=== PATIENT | female | born 1940 ===

== ENCOUNTER 2018-07-31 23:53 | Inpatient (IN) ==
[2018-08-01] MEDS ORDERED: SODIUM CHLORIDE 0.9% 2,100 ML IV ONE (01:01)
[2018-08-01] MEDS ORDERED: GLUCAGON 1 MG VIAL IM PRN (01:19)
[2018-08-01] MEDS ORDERED: ZALEPLON 5 MG CAPSULE PO PRN (01:19)
[2018-08-01] MEDS ORDERED: diphenhydrAMINE CAP 25 MG CAPSULE PO PRN (01:19)
[2018-08-01] MEDS ORDERED: BISACODYL 5 MG TABLET PO PRN (01:19)
[2018-08-01] MEDS ORDERED: DEXTROSE 50% 25 GM/50 ML SYRINGE IV PRN (01:19)
[2018-08-01] MEDS ORDERED: MORPHINE 4 MG/1 ML VIAL IV PRN (01:19)
[2018-08-01] MEDS ORDERED: PROMETHAZINE 25 MG/1 ML VIAL IM PRN (01:19)
[2018-08-01 02:13] LABS: PT Patient Result 11.2 SECS; Partial Thromboplastin Time 28.8 SECS (0-40)
[2018-08-01 02:18] LABS: Basophils % 0.2 % (0.0-0.8); Hematocrit 37.8 VOL% (35.7-47.0); Hemoglobin 12.8 GM/DL (12.0-16.0); Immature Granulocytes % 1.3 %; Immature Granulocytes Absolute 0.27 #; Lymphocytes # 1.2 10*3/uL (1.4-4.0); Lymphocytes % 5.7 % (21.3-54.2); Mean Corpuscular HGB Conc 33.9 GM/DL (32-36); Mean Corpuscular Hemoglobin 28 PG (27-34); Mean Corpuscular Volume 83.1 FL (87-102); Mean Platelet Volume 10.5 FL (9.6-12.0); Monocytes # 1.1 10*3/uL (0.11-0.8); Monocytes % 5.3 % (1.7-12.7); Neutrophils # 18.1 10*3/uL (1.4-7.4); Neutrophils % 87.5 % (38.7-73.9); Platelet Count 179 T/CUMM (130-400); Red Blood Count 4.55 MC/CUMM (3.8-5.5); Red Cell Distribution Width 12.8 % (9.3-17.3); White Blood Count 20.7 T/CUMM (4-12)
[2018-08-01] MEDS ORDERED: MEROPENEM 1,000 MG VIAL IV ONE (02:44)
[2018-08-01] MEDS ORDERED: SODIUM CHLORIDE 0.9% 100 ML IV ONE (02:44)
[2018-08-01] MEDS: MEROPENEM 1,000 MG in SODIUM CHLORIDE 0.9% 100 ML IV SCH ×3 (02:48→15:11)
[2018-08-01 02:58] LABS: Albumin 3.3 G/DL (3.4-5.0); Bilirubin,Total 1.2 MG/DL (0.2-1.0); Calcium 8.3 MG/DL (8.5-10.1); Osmolality,Calculated 282.4 MOS/KG (273-304); Potassium 3.1 MMOL/L (3.5-5.1); Total Protein 7.4 G/DL (6.4-8.3)
[2018-08-01 03:15] LABS: Apearance,Urine Slightly Hazy (Clear); Bacteria,Urine Occasional /HPF (Few); Bilirubin,Urine Negative (Negative); Blood, Urine Large mg/dL (Negative); Glucose,Urine (UA) >=500 mg/dL (Negative); Ketones,Urine 20 mg/dL (Negative); Mucus,Urine Occasional /LPF (Occasional); Nitrite,Urine Negative (Negative); Protein,Urine 30 MG/DL; RBC,Urine 1 /HPF (0-4); Squamous Epithelial Cell,Urine Occasional /HPF (0-10); Urine Color Yellow (Yellow); Urine Specific Gravity 1.025 (1.001-1.035); Urine Urobilinogen < 2.0 EU/DL (0.2-1.0); WBC,Urine 77 /HPF (0-6)
[2018-08-01 03:44] LABS: Band Neutrophils 4 % (0-10); Lymphocytes 7 % (20-55); Segmented Neutrophils 88 % (50-85)
[2018-08-01 03:45] LABS: Platelet Estimate Adequate; Total Cells Counted 100
[2018-08-01] MEDS: SODIUM CHLORIDE 0.9% 1,000 ML IV SCH ×3 (04:06→17:42)
[2018-08-01] MEDS: ACETAMINOPHEN 325 MG TABLET PO PRN ×2 (04:28→15:11)
[2018-08-01] MEDS: amLODIPine 5 MG TABLET PO SCH (09:02)
[2018-08-01] MEDS: PANTOPRAZOLE 40 MG TABLET PO SCH (09:02)
[2018-08-01] MEDS: INSULIN NPH/REGULAR 70/30 100 UNIT/ML SUBCUT SCH ×2 (09:02→21:12)
[2018-08-01] MEDS: LISINOPRIL 20 MG TABLET PO SCH (09:02)
[2018-08-01] MEDS: ASPIRIN EC 81 MG TABLET PO SCH (09:02)
[2018-08-01] MEDS: DONEPEZIL 10 MG TABLET PO SCH (09:02)
[2018-08-01] MEDS: INSULIN REGULAR 100 UNIT/ML SUBCUT SCH ×4 (09:04→21:12)
[2018-08-01] MEDS: POTASSIUM CHLORIDE 20 MEQ/15 ML UDCUP PER TUBE PRN ×2 (11:00→13:00)
[2018-08-01] MEDS ORDERED: ACETAMINOPHEN 650 MG SUPP RECTAL ONE (15:12)
[2018-08-01] MEDS: ONDANSETRON 4 MG/2 ML VIAL IV PRN (15:32)
[2018-08-01] MEDS: SIMVASTATIN 10 MG TABLET PO SCH (21:11)
[2018-08-02] MEDS: SODIUM CHLORIDE 0.9% 1,000 ML IV SCH ×3 (00:16→22:19)
[2018-08-02] MEDS: MEROPENEM 1,000 MG in SODIUM CHLORIDE 0.9% 100 ML IV SCH ×2 (00:48→13:52)
[2018-08-02] MEDS: ACETAMINOPHEN 325 MG TABLET PO PRN (06:18)
[2018-08-02] MEDS: INSULIN REGULAR 100 UNIT/ML SUBCUT SCH ×4 (08:33→20:57)
[2018-08-02] MEDS: DONEPEZIL 10 MG TABLET PO SCH (08:38)
[2018-08-02] MEDS: amLODIPine 5 MG TABLET PO SCH (08:38)
[2018-08-02] MEDS: ASPIRIN EC 81 MG TABLET PO SCH (08:38)
[2018-08-02] MEDS: INSULIN NPH/REGULAR 70/30 100 UNIT/ML SUBCUT SCH ×2 (08:38→20:49)
[2018-08-02] MEDS: PANTOPRAZOLE 40 MG TABLET PO SCH (08:38)
[2018-08-02] MEDS: LISINOPRIL 20 MG TABLET PO SCH (08:38)
[2018-08-02] MEDS: POTASSIUM CHLORIDE 20 MEQ/15 ML UDCUP PER TUBE PRN ×4 (08:39→21:38)
[2018-08-02] MEDS ORDERED: VANCOMYCIN INJ 1,000 MG in SODIUM CHLORIDE 0.9% 250 ML IV ONE (10:00)
[2018-08-02] MEDS ORDERED: GLIMEPIRIDE 2 MG TABLET PO SCH (10:00)
[2018-08-02] MEDS: VANCOMYCIN INJ 1,000 MG in SODIUM CHLORIDE 0.9% 250 ML IV SCH (10:11)
[2018-08-02] MEDS: GLIMEPIRIDE 2 MG TABLET PO SCH (16:14)
[2018-08-02] MEDS: SIMVASTATIN 10 MG TABLET PO SCH (20:48)
[2018-08-03] MEDS: MEROPENEM 1,000 MG in SODIUM CHLORIDE 0.9% 100 ML IV SCH ×2 (01:27→13:46)
[2018-08-03] MEDS: ONDANSETRON 4 MG/2 ML VIAL IV PRN ×2 (01:31→20:59)
[2018-08-03] MEDS: SODIUM CHLORIDE 0.9% 1,000 ML IV SCH ×2 (08:28→20:18)
[2018-08-03] MEDS: POTASSIUM CHLORIDE 20 MEQ/15 ML UDCUP PER TUBE PRN (08:29)
[2018-08-03] MEDS: INSULIN REGULAR 100 UNIT/ML SUBCUT SCH ×4 (08:29→21:02)
[2018-08-03] MEDS: LISINOPRIL 20 MG TABLET PO SCH (08:29)
[2018-08-03] MEDS: INSULIN NPH/REGULAR 70/30 100 UNIT/ML SUBCUT SCH ×2 (08:29→21:03)
[2018-08-03] MEDS: GLIMEPIRIDE 2 MG TABLET PO SCH ×2 (08:30→15:59)
[2018-08-03] MEDS: DONEPEZIL 10 MG TABLET PO SCH (08:30)
[2018-08-03] MEDS: PANTOPRAZOLE 40 MG TABLET PO SCH (08:30)
[2018-08-03] MEDS: amLODIPine 5 MG TABLET PO SCH ×2 (08:30→20:58)
[2018-08-03] MEDS: ASPIRIN EC 81 MG TABLET PO SCH (08:30)
[2018-08-03] MEDS: VANCOMYCIN INJ 1,000 MG in SODIUM CHLORIDE 0.9% 250 ML IV SCH (09:31)
[2018-08-03] MEDS: ACETAMINOPHEN 325 MG TABLET PO PRN (18:12)
[2018-08-03] MEDS: SIMVASTATIN 10 MG TABLET PO SCH (20:57)
[2018-08-04] MEDS: MEROPENEM 1,000 MG in SODIUM CHLORIDE 0.9% 100 ML IV SCH ×2 (00:57→13:42)
[2018-08-04] MEDS: SODIUM CHLORIDE 0.9% 1,000 ML IV SCH ×3 (05:33→21:31)
[2018-08-04 06:07] LABS: Basophils % 0.4 % (0.0-0.8); Eosinophils # 0.2 10*3/uL (0.0-0.87); Eosinophils % 2.1 % (0.00-10.9); Hematocrit 30.8 VOL% (35.7-47.0); Hemoglobin 10.2 GM/DL (12.0-16.0); Immature Granulocytes % 1.3 %; Immature Granulocytes Absolute 0.09 #; Lymphocytes # 1.8 10*3/uL (1.4-4.0); Lymphocytes % 25.9 % (21.3-54.2); Mean Corpuscular HGB Conc 33.1 GM/DL (32-36); Mean Corpuscular Hemoglobin 28 PG (27-34); Mean Corpuscular Volume 83.7 FL (87-102); Mean Platelet Volume 10.8 FL (9.6-12.0); Monocytes # 0.8 10*3/uL (0.11-0.8); Neutrophils # 4.2 10*3/uL (1.4-7.4); Neutrophils % 59.3 % (38.7-73.9); Platelet Count 177 T/CUMM (130-400); Red Blood Count 3.68 MC/CUMM (3.8-5.5); Red Cell Distribution Width 13.3 % (9.3-17.3); White Blood Count 7.1 T/CUMM (4-12)
[2018-08-04 06:36] LABS: Calcium 7.8 MG/DL (8.5-10.1); Osmolality,Calculated 278.3 MOS/KG (273-304); Potassium 3.2 MMOL/L (3.5-5.1)
[2018-08-04] MEDS: LISINOPRIL 20 MG TABLET PO SCH (08:33)
[2018-08-04] MEDS: PANTOPRAZOLE 40 MG TABLET PO SCH (08:33)
[2018-08-04] MEDS: amLODIPine 5 MG TABLET PO SCH ×2 (08:33→20:32)
[2018-08-04] MEDS: ASPIRIN EC 81 MG TABLET PO SCH (08:33)
[2018-08-04] MEDS: GLIMEPIRIDE 2 MG TABLET PO SCH ×2 (08:33→16:58)
[2018-08-04] MEDS: POTASSIUM CHLORIDE 20 MEQ/15 ML UDCUP PER TUBE PRN ×4 (08:35→16:58)
[2018-08-04] MEDS: DONEPEZIL 10 MG TABLET PO SCH (08:35)
[2018-08-04] MEDS: INSULIN REGULAR 100 UNIT/ML SUBCUT SCH ×4 (10:17→20:32)
[2018-08-04] MEDS: TAMSULOSIN 0.4 MG CAPSULE PO SCH (12:49)
[2018-08-04] MEDS: INSULIN NPH/REGULAR 70/30 100 UNIT/ML SUBCUT SCH ×2 (12:52→20:33)
[2018-08-04] MEDS: SIMVASTATIN 10 MG TABLET PO SCH (20:32)
[2018-08-05] MEDS: MEROPENEM 1,000 MG in SODIUM CHLORIDE 0.9% 100 ML IV SCH (00:44)
[2018-08-05] MEDS: ACETAMINOPHEN 325 MG TABLET PO PRN (06:01)
[2018-08-05] MEDS: INSULIN REGULAR 100 UNIT/ML SUBCUT SCH ×2 (08:06→12:12)
[2018-08-05] MEDS: ASPIRIN EC 81 MG TABLET PO SCH (08:45)
[2018-08-05] MEDS: DONEPEZIL 10 MG TABLET PO SCH (08:45)
[2018-08-05] MEDS: SODIUM CHLORIDE 0.9% 1,000 ML IV SCH (08:45)
[2018-08-05] MEDS: PANTOPRAZOLE 40 MG TABLET PO SCH (08:45)
[2018-08-05] MEDS: TAMSULOSIN 0.4 MG CAPSULE PO SCH (08:45)
[2018-08-05] MEDS: GLIMEPIRIDE 2 MG TABLET PO SCH (08:45)
[2018-08-05] MEDS: amLODIPine 5 MG TABLET PO SCH (08:45)
[2018-08-05] MEDS: LISINOPRIL 20 MG TABLET PO SCH (08:45)
[2018-08-05] MEDS: INSULIN NPH/REGULAR 70/30 100 UNIT/ML SUBCUT SCH (08:56)
[2018-08-05] MEDS ORDERED: POTASSIUM CHLORIDE 20 MEQ TABLET PO ONE (11:52)
[2018-08-05] MEDS ORDERED: POTASSIUM CHLORIDE 10 MEQ TABLET PO ONE (11:53)
[2018-08-05 12:14] VITALS: BP 151/82
== END 2018-08-05 14:31 | disposition home or self-care (01) | DRG 690 ==
LOC: EDUNIT# → EDBD → N.ED 23:53 → N.EDINP 08-01 01:19 → N.5E 08-01 01:46
PROVIDERS: ADMIT Internal Medicine; ATTEND Internal Medicine

== ENCOUNTER 2022-03-31 08:56 | Inpatient (IN) ==
[2022-03-31] MEDS ORDERED: SODIUM CHLORIDE 0.9% 1,000 ML IV STA (10:00)
[2022-03-31 10:12] LABS: Basophils % 0.3 % (0.0-0.8); Eosinophils # 0.2 10*3/uL (0.0-0.87); Eosinophils % 1.4 % (0.00-10.9); Hematocrit 35.1 VOL% (35.7-47.0); Hemoglobin 10.6 GM/DL (12.0-16.0); Immature Granulocytes % 6.1 %; Immature Granulocytes Absolute 0.66 #; Lymphocytes # 0.9 10*3/uL (1.4-4.0); Lymphocytes % 8.4 % (21.3-54.2); Mean Corpuscular HGB Conc 30.2 GM/DL (32-36); Mean Corpuscular Volume 91.4 FL (87-102); Mean Platelet Volume 10.2 FL (9.6-12.0); Monocytes # 0.5 10*3/uL (0.11-0.8); Monocytes % 4.8 % (1.7-12.7); Platelet Count 191 T/CUMM (130-400); Red Blood Count 3.84 MC/CUMM (3.8-5.5); Red Cell Distribution Width 14.4 % (9.3-17.3); White Blood Count 10.8 T/CUMM (4-12)
[2022-03-31] MEDS ORDERED: ACETAMINOPHEN 325 MG TABLET PO PRN (10:16)
[2022-03-31] MEDS ORDERED: GLUCAGON 1 MG VIAL IM PRN (10:16)
[2022-03-31] MEDS ORDERED: DEXTROSE 10% 250 ML BAG IV PRN (10:19)
[2022-03-31] MEDS ORDERED: hydrALAZINE 20 MG/1 ML VIAL IV STA (10:22)
[2022-03-31] MEDS ORDERED: SODIUM CHLORIDE 0.9% 1,000 ML IV SCH (10:30)
[2022-03-31] MEDS ORDERED: FONDAPARINUX 2.5 MG/0.5 ML SYRINGE SUBCUT SCH (10:30)
[2022-03-31 10:34] LABS: Albumin 2.6 G/DL (3.4-5.0); Bilirubin,Total 0.6 MG/DL (0.20-1.00); Calcium 8.6 MG/DL (8.5-10.1); Osmolality,Calculated 338.4 MOS/KG (273-304); Potassium 3.9 MMOL/L (3.5-5.1); Total Protein 7.3 G/DL (6.4-8.2)
[2022-03-31 10:38] LABS: Band Neutrophils 1 % (0-10); Eosinophils 8 % (0-10); Lymphocytes 16 % (20-55); Total Cells Counted 100
[2022-03-31 10:39] LABS: Hypochromia 1+; Microcytosis 1+; Ovalocytes Slight
[2022-03-31 10:55] LABS: Bilirubin,Urine Negative (Negative); Blood, Urine Large mg/dL (Negative); Glucose,Urine (UA) Negative (Negative); Ketones,Urine 5 mg/dL (Negative); Mucus,Urine Occasional /LPF (Occasional); Nitrite,Urine Negative (Negative); Protein,Urine 100 mg/dL (Negative); RBC,Urine 606 /HPF (0-4); Urine Appearance Slightly Hazy (Clear); Urine Color Yellow (Yellow); Urine Specific Gravity 1.012 (1.001-1.035); Urine Urobilinogen < 2.0 eU/dL (<2.0)
[2022-03-31] MEDS: INSULIN LISPRO 100 UNIT/ML SUBCUT SCH ×3 (12:30→22:06)
[2022-03-31] MEDS: cefTRIAXone 1,000 MG in SODIUM CHLORIDE 0.9% 100 ML IV SCH (12:38)
[2022-03-31] MEDS: amLODIPine 10 MG TABLET PO SCH (12:38)
[2022-03-31] MEDS: HEPARIN 5,000 UNIT/1 ML VIAL SUBCUT SCH ×2 (12:38→20:57)
[2022-03-31] MEDS: SODIUM CHLORIDE 0.45% 1,000 ML IV SCH ×2 (12:38→22:00)
[2022-03-31] MEDS: ONDANSETRON 4 MG/2 ML VIAL IV PRN (13:00)
[2022-03-31] MEDS: carvediloL 3.125 MG TABLET PO SCH (16:28)
[2022-03-31] MEDS: hydrALAZINE 25 MG TABLET PO SCH (22:05)
[2022-03-31] MEDS: DONEPEZIL 10 MG TABLET PO SCH (22:05)
[2022-03-31] MEDS: risperiDONE 0.5 MG TABLET PO SCH (22:07)
[2022-03-31] MEDS: MEMANTINE 5 MG TABLET PO SCH (22:07)
[2022-04-01] MEDS: ONDANSETRON 4 MG/2 ML VIAL IV PRN ×3 (03:41→16:49)
[2022-04-01] MEDS: SODIUM CHLORIDE 0.45% 1,000 ML IV SCH ×2 (04:05→06:37)
[2022-04-01] MEDS ORDERED: hydrALAZINE 20 MG/1 ML VIAL IV PRN (04:05)
[2022-04-01 06:23] LABS: Calcium 8.4 MG/DL (8.5-10.1); Osmolality,Calculated 334.4 MOS/KG (273-304); Potassium 4.2 MMOL/L (3.5-5.1); Risk Ratio 3.29; VLDL Cholesterol 27.8 MG/DL
[2022-04-01 06:32] LABS: Basophils % 0.3 % (0.0-0.8); Eosinophils # 0.1 10*3/uL (0.0-0.87); Eosinophils % 0.4 % (0.00-10.9); Hematocrit 31.2 VOL% (35.7-47.0); Immature Granulocytes Absolute 0.97 #; Lymphocytes % 6.9 % (21.3-54.2); Mean Corpuscular HGB Conc 29.5 GM/DL (32-36); Mean Corpuscular Volume 93.7 FL (87-102); Mean Platelet Volume 10.8 FL (9.6-12.0); Monocytes # 0.5 10*3/uL (0.11-0.8); Monocytes % 3.7 % (1.7-12.7); Neutrophils % 81.7 % (38.7-73.9); Platelet Count 178 T/CUMM (130-400); Red Blood Count 3.33 MC/CUMM (3.8-5.5); Red Cell Distribution Width 14.4 % (9.3-17.3); White Blood Count 13.9 T/CUMM (4-12)
[2022-04-01 06:40] LABS: Hemoglobin 9.2 GM/DL (12.0-16.0)
[2022-04-01 06:51] LABS: Band Neutrophils 1 % (0-10); Eosinophils 1 % (0-10); Lymphocytes 4 % (20-55); Ovalocytes Slight; Platelet Estimate Adequate; Total Cells Counted 100
[2022-04-01 06:52] LABS: Hypochromia Slight; Microcytosis Slight
[2022-04-01] MEDS ORDERED: SODIUM BICARB INJ 150 MEQ in STERILE WATER INJ 850 ML IV SCH (08:30)
[2022-04-01] MEDS: INSULIN LISPRO 100 UNIT/ML SUBCUT SCH ×4 (09:44→22:36)
[2022-04-01] MEDS: cefTRIAXone 1,000 MG in SODIUM CHLORIDE 0.9% 100 ML IV SCH (09:45)
[2022-04-01] MEDS: HEPARIN 5,000 UNIT/1 ML VIAL SUBCUT SCH (09:45)
[2022-04-01] MEDS: SPIRONOLACTONE 25 MG TABLET PO SCH (12:58)
[2022-04-01] MEDS: MEMANTINE 5 MG TABLET PO SCH ×2 (12:58→22:25)
[2022-04-01] MEDS: amLODIPine 10 MG TABLET PO SCH (12:58)
[2022-04-01] MEDS: carvediloL 3.125 MG TABLET PO SCH ×2 (12:58→16:50)
[2022-04-01] MEDS: hydrALAZINE 25 MG TABLET PO SCH (12:58)
[2022-04-01] MEDS: ASPIRIN EC 81 MG TABLET PO SCH (12:58)
[2022-04-01] MEDS: CLOPIDOGREL 75 MG TABLET PO SCH (12:58)
[2022-04-01] MEDS: ATORVASTATIN 80 MG TABLET PO SCH (12:58)
[2022-04-01] MEDS: SODIUM BICARB INJ 150 MEQ in STERILE WATER INJ 1,000 ML IV SCH (12:58)
[2022-04-01] MEDS: DONEPEZIL 10 MG TABLET PO SCH (22:25)
[2022-04-01] MEDS: risperiDONE 0.5 MG TABLET PO SCH (22:25)
[2022-04-02] MEDS: HEPARIN 5,000 UNIT/1 ML VIAL SUBCUT SCH ×4 (00:08→22:11)
[2022-04-02] MEDS: SODIUM BICARB INJ 150 MEQ in STERILE WATER INJ 1,000 ML IV SCH (02:53)
[2022-04-02 08:35] LABS: Basophils % 0.2 % (0.0-0.8); Eosinophils % 0.3 % (0.00-10.9); Hematocrit 29.5 VOL% (35.7-47.0); Immature Granulocytes % 3.1 %; Immature Granulocytes Absolute 0.47 #; Lymphocytes % 6.5 % (21.3-54.2); Mean Corpuscular HGB Conc 30.5 GM/DL (32-36); Mean Corpuscular Volume 91.6 FL (87-102); Mean Platelet Volume 10.8 FL (9.6-12.0); Monocytes # 0.6 10*3/uL (0.11-0.8); Monocytes % 3.7 % (1.7-12.7); Neutrophils % 86.2 % (38.7-73.9); Platelet Count 157 T/CUMM (130-400); Red Blood Count 3.22 MC/CUMM (3.8-5.5); Red Cell Distribution Width 14.5 % (9.3-17.3); White Blood Count 15.2 T/CUMM (4-12)
[2022-04-02 08:53] LABS: Calcium 8.5 MG/DL (8.5-10.1); Osmolality,Calculated 330.6 MOS/KG (273-304); Potassium 3.5 MMOL/L (3.5-5.1)
[2022-04-02] MEDS ORDERED: SODIUM BICARB INJ 50 MEQ in STERILE WATER INJ 1,000 ML IV SCH (09:11)
[2022-04-02] MEDS: cefTRIAXone 1,000 MG in SODIUM CHLORIDE 0.9% 100 ML IV SCH (09:42)
[2022-04-02] MEDS: INSULIN LISPRO 100 UNIT/ML SUBCUT SCH ×4 (09:43→17:30)
[2022-04-02] MEDS: ONDANSETRON 4 MG/2 ML VIAL IV PRN (09:43)
[2022-04-02] MEDS: carvediloL 3.125 MG TABLET PO SCH ×2 (09:44→17:25)
[2022-04-02] MEDS: CLOPIDOGREL 75 MG TABLET PO SCH (09:44)
[2022-04-02] MEDS: ASPIRIN EC 81 MG TABLET PO SCH (09:44)
[2022-04-02] MEDS: SPIRONOLACTONE 25 MG TABLET PO SCH (09:44)
[2022-04-02] MEDS: amLODIPine 10 MG TABLET PO SCH (09:44)
[2022-04-02] MEDS: MEMANTINE 5 MG TABLET PO SCH ×2 (09:44→21:00)
[2022-04-02] MEDS: ATORVASTATIN 80 MG TABLET PO SCH (09:44)
[2022-04-02 10:48] LABS: Arterial Base Excess iSTAT -1 MMOL/L (-2.5-2.5); Arterial Bicarbonate iSTAT 23.5 MMOL/L (20-26); Arterial O2 Saturation iSTAT 93 % (95-100); Arterial PCO2 iSTAT 38 MM HG (35-48); Arterial PO2 iSTAT 65 MM HG (80-95); Arterial Total CO2 iSTAT 25 MMO/L (23-27); Arterial pH iSTAT 7.404 (7.35-7.45)
[2022-04-02] MEDS: POTASSIUM CHLORIDE INJ 20 MEQ in LACTATED RINGERS 1,000 ML IV SCH (11:34)
[2022-04-02] MEDS: INSULIN GLARGINE 100 UNIT/ML SUBCUT SCH ×2 (13:53→15:26)
[2022-04-02 14:44] LABS: Calcium 8.1 MG/DL (8.5-10.1); Osmolality,Calculated 338.6 MOS/KG (273-304); Potassium 3.7 MMOL/L (3.5-5.1)
[2022-04-02] MEDS: risperiDONE 0.5 MG TABLET PO SCH (21:00)
[2022-04-02] MEDS: DONEPEZIL 10 MG TABLET PO SCH (21:00)
[2022-04-03] MEDS: INSULIN LISPRO 100 UNIT/ML SUBCUT SCH ×5 (00:06→22:00)
[2022-04-03] MEDS: INSULIN GLARGINE 100 UNIT/ML SUBCUT SCH ×3 (00:08→22:13)
[2022-04-03 05:45] LABS: Basophils % 0.3 % (0.0-0.8); Eosinophils # 0.1 10*3/uL (0.0-0.87); Hematocrit 28.5 VOL% (35.7-47.0); Hemoglobin 8.6 GM/DL (12.0-16.0); Immature Granulocytes % 2.5 %; Immature Granulocytes Absolute 0.26 #; Lymphocytes # 1.1 10*3/uL (1.4-4.0); Mean Corpuscular HGB Conc 30.2 GM/DL (32-36); Mean Corpuscular Volume 91.6 FL (87-102); Mean Platelet Volume 11.2 FL (9.6-12.0); Monocytes # 0.7 10*3/uL (0.11-0.8); Monocytes % 6.4 % (1.7-12.7); Neutrophils % 79.8 % (38.7-73.9); Platelet Count 137 T/CUMM (130-400); Red Blood Count 3.11 MC/CUMM (3.8-5.5); Red Cell Distribution Width 14.5 % (9.3-17.3); White Blood Count 10.6 T/CUMM (4-12)
[2022-04-03 05:54] LABS: Calcium 8.3 MG/DL (8.5-10.1); Osmolality,Calculated 331.2 MOS/KG (273-304); Potassium 3.7 MMOL/L (3.5-5.1)
[2022-04-03] MEDS: POTASSIUM CHLORIDE INJ 20 MEQ in LACTATED RINGERS 1,000 ML IV SCH ×2 (07:58→08:59)
[2022-04-03] MEDS: ATORVASTATIN 80 MG TABLET PO SCH (08:57)
[2022-04-03] MEDS: MEMANTINE 5 MG TABLET PO SCH ×2 (08:57→21:13)
[2022-04-03] MEDS: ASPIRIN EC 81 MG TABLET PO SCH (08:57)
[2022-04-03] MEDS: ISOSORBIDE MONONITRATE 30 MG TABLET PO SCH (08:57)
[2022-04-03] MEDS: amLODIPine 10 MG TABLET PO SCH (08:58)
[2022-04-03] MEDS: CLOPIDOGREL 75 MG TABLET PO SCH (08:58)
[2022-04-03] MEDS: carvediloL 3.125 MG TABLET PO SCH ×2 (08:58→16:20)
[2022-04-03] MEDS: SPIRONOLACTONE 25 MG TABLET PO SCH (08:59)
[2022-04-03] MEDS: HEPARIN 5,000 UNIT/1 ML VIAL SUBCUT SCH (09:00)
[2022-04-03] MEDS: cefTRIAXone 1,000 MG in SODIUM CHLORIDE 0.9% 100 ML IV SCH (09:01)
[2022-04-03] MEDS ORDERED: POTASSIUM BICARB EFFERVESCENT 25 MEQ TAB.EFF PO SCH (14:00)
[2022-04-03] MEDS: SODIUM CHLORIDE 0.45% 1,000 ML IV SCH (15:25)
[2022-04-03] MEDS: POTASSIUM BICARB EFFERVESCENT 20 MEQ TAB.EFF PO SCH ×2 (15:25→21:12)
[2022-04-03] MEDS ORDERED: INSULIN GLARGINE 100 UNIT/ML SUBCUT SCH (21:00)
[2022-04-03] MEDS: DONEPEZIL 10 MG TABLET PO SCH (21:11)
[2022-04-03] MEDS: risperiDONE 0.5 MG TABLET PO SCH (21:14)
[2022-04-04] MEDS: SODIUM CHLORIDE 0.45% 1,000 ML IV SCH ×3 (03:35→23:28)
[2022-04-04 05:38] LABS: Basophils % 0.2 % (0.0-0.8); Eosinophils # 0.2 10*3/uL (0.0-0.87); Eosinophils % 1.8 % (0.00-10.9); Hematocrit 28.9 VOL% (35.7-47.0); Hemoglobin 8.6 GM/DL (12.0-16.0); Immature Granulocytes % 1.7 %; Immature Granulocytes Absolute 0.21 #; Lymphocytes # 1.2 10*3/uL (1.4-4.0); Lymphocytes % 9.8 % (21.3-54.2); Mean Corpuscular HGB Conc 29.8 GM/DL (32-36); Mean Corpuscular Volume 91.5 FL (87-102); Mean Platelet Volume 11.3 FL (9.6-12.0); Monocytes # 0.7 10*3/uL (0.11-0.8); Monocytes % 5.7 % (1.7-12.7); Neutrophils % 80.8 % (38.7-73.9); Platelet Count 126 T/CUMM (130-400); Red Blood Count 3.16 MC/CUMM (3.8-5.5); Red Cell Distribution Width 14.4 % (9.3-17.3); White Blood Count 12.1 T/CUMM (4-12)
[2022-04-04 06:00] LABS: Calcium 8.1 MG/DL (8.5-10.1); Osmolality,Calculated 314.9 MOS/KG (273-304); Potassium 3.6 MMOL/L (3.5-5.1)
[2022-04-04] MEDS: ONDANSETRON 4 MG/2 ML VIAL IV PRN (07:58)
[2022-04-04] MEDS: carvediloL 3.125 MG TABLET PO SCH ×2 (09:57→18:22)
[2022-04-04] MEDS: ISOSORBIDE MONONITRATE 30 MG TABLET PO SCH (09:57)
[2022-04-04] MEDS: ATORVASTATIN 80 MG TABLET PO SCH (09:57)
[2022-04-04] MEDS: CLOPIDOGREL 75 MG TABLET PO SCH (09:57)
[2022-04-04] MEDS: POTASSIUM BICARB EFFERVESCENT 20 MEQ TAB.EFF PO SCH ×2 (09:57→21:34)
[2022-04-04] MEDS: amLODIPine 10 MG TABLET PO SCH (09:57)
[2022-04-04] MEDS: ASPIRIN EC 81 MG TABLET PO SCH (09:57)
[2022-04-04] MEDS: MEMANTINE 5 MG TABLET PO SCH ×2 (09:57→21:35)
[2022-04-04] MEDS: SPIRONOLACTONE 25 MG TABLET PO SCH (09:57)
[2022-04-04] MEDS: INSULIN LISPRO 100 UNIT/ML SUBCUT SCH ×4 (09:59→22:50)
[2022-04-04] MEDS: INSULIN GLARGINE 100 UNIT/ML SUBCUT SCH ×2 (09:59→21:34)
[2022-04-04] MEDS: HEPARIN 5,000 UNIT/1 ML VIAL SUBCUT SCH ×2 (09:59→21:34)
[2022-04-04] MEDS: cefTRIAXone 1,000 MG in SODIUM CHLORIDE 0.9% 100 ML IV SCH (10:10)
[2022-04-04] MEDS ORDERED: FUROSEMIDE 20 MG/2 ML VIAL IV ONE (19:30)
[2022-04-04] MEDS: DONEPEZIL 10 MG TABLET PO SCH (21:33)
[2022-04-04] MEDS: risperiDONE 0.5 MG TABLET PO SCH (21:35)
[2022-04-05 06:21] LABS: Basophils % 0.3 % (0.0-0.8); Eosinophils # 0.3 10*3/uL (0.0-0.87); Eosinophils % 2.5 % (0.00-10.9); Hemoglobin 8.4 GM/DL (12.0-16.0); Immature Granulocytes % 0.9 %; Lymphocytes # 1.2 10*3/uL (1.4-4.0); Lymphocytes % 10.9 % (21.3-54.2); Mean Corpuscular Volume 90.9 FL (87-102); Mean Platelet Volume 11.5 FL (9.6-12.0); Monocytes # 0.6 10*3/uL (0.11-0.8); Monocytes % 5.2 % (1.7-12.7); Neutrophils % 80.2 % (38.7-73.9); Platelet Count 122 T/CUMM (130-400); Red Blood Count 3.08 MC/CUMM (3.8-5.5); Red Cell Distribution Width 14.3 % (9.3-17.3); White Blood Count 10.8 T/CUMM (4-12)
[2022-04-05 06:33] LABS: Osmolality,Calculated 305.1 MOS/KG (273-304)
[2022-04-05] MEDS: carvediloL 3.125 MG TABLET PO SCH (09:41)
[2022-04-05] MEDS: CLOPIDOGREL 75 MG TABLET PO SCH (09:42)
[2022-04-05] MEDS: POTASSIUM BICARB EFFERVESCENT 20 MEQ TAB.EFF PO SCH (09:42)
[2022-04-05] MEDS: ATORVASTATIN 80 MG TABLET PO SCH (09:42)
[2022-04-05] MEDS: amLODIPine 10 MG TABLET PO SCH (09:42)
[2022-04-05] MEDS: ASPIRIN EC 81 MG TABLET PO SCH (09:42)
[2022-04-05] MEDS: SPIRONOLACTONE 25 MG TABLET PO SCH (09:42)
[2022-04-05] MEDS: ISOSORBIDE MONONITRATE 30 MG TABLET PO SCH (09:43)
[2022-04-05] MEDS: MEMANTINE 5 MG TABLET PO SCH (09:43)
[2022-04-05] MEDS: INSULIN LISPRO 100 UNIT/ML SUBCUT SCH ×2 (09:45→12:09)
[2022-04-05] MEDS: HEPARIN 5,000 UNIT/1 ML VIAL SUBCUT SCH (09:50)
[2022-04-05] MEDS: INSULIN GLARGINE 100 UNIT/ML SUBCUT SCH (09:50)
[2022-04-05] MEDS: SODIUM CHLORIDE 0.45% 1,000 ML IV SCH (10:38)
[2022-04-05] MEDS: cefTRIAXone 1,000 MG in SODIUM CHLORIDE 0.9% 100 ML IV SCH (10:39)
[2022-04-05 12:14] VITALS: BP 130/56
== END 2022-04-05 15:00 | DRG 682 ==
LOC: N.ED 08:56 → SUATTDRO 10:15 → N.EDINP 10:15 → N.5E 12:00
PROVIDERS: ADMIT Internal Medicine; ATTEND Internal Medicine Geriatric Medicine